=== PATIENT | male | born 1975 | race Caucasian/White ===

== ENCOUNTER 2025-08-31 12:12 | Inpatient (IN) ==
[2025-08-31 13:05] LABS: Hematocrit (blood only) 40.3 % (42.0-52.0); Hemoglobin 14.7 g/dL (14.0-18.0); Immature Granulocytes # (auto) 0.04 K/uL (0.01-0.20); Immature Granulocytes % (auto) 0.5 %; Mean Corpuscular Hemoglobin 32.0 pg (25.0-34.0); Mean Corpuscular Volume 87.6 fL (80.0-100.0); Platelet Count 254 K/uL (130-400); RDW Standard Deviation 40.6 fL (36.4-46.3); Red Blood Count 4.60 M/uL (4.70-6.10); White Blood Count 8.87 K/ul (4.8-10.8)
[2025-08-31 13:22] LABS: Alanine Aminotransferase 25.0 U/L (7-52); Albumin Globulin Ratio 2.1 (0.9-2); Albumin Level 4.4 gm/dl (3.4-5.0); Alkaline Phosphatase 46.0 U/L (34-104); Anion Gap 8.0 (3-11); Bilirubin,Total 0.6 mg/dl (0.2-1.0); Blood Urea Nitrogen 13.0 mg/dl (6-23); Calcium 9.2 mg/dl (8.6-10.3); Carbon Dioxide 28.0 mmol/L (21-32); Chloride 102.0 mmol/L (98-107); Creatinine Clr Calc Pharmacy 145.7 ml/min; Globulin 2.1 gm/dl (2.5-4.0); Glucose 107.0 mg/dl (70-99(Fasting)); Potassium 3.5 mmol/L (3.5-5.1); Sodium 138.0 mmol/L (136-145); Total Protein 6.5 gm/dl (6.0-8.3)
--- NOTE | 2025-08-31 13:36 | XRay Report ---
XR chest 1V portable HISTORY: 50 years-old Male Chest pain, nonspecific COMPARISON: Chest radiograph 12/23/2024 TECHNIQUE: AP view of the chest FINDINGS: Cardiomediastinal and hilar silhouettes are within normal limits. No pneumothorax, pleural effusion, airspace consolidation or pulmonary edema. Bones of the chest appear grossly intact. IMPRESSION: No acute process of the chest. ACT 112: Negative or not required by law. The above report was generated using voice recognition software. It may contain grammatical, syntax o r spelling errors. Electronically signed by: Iraj Chirinos M.D. 08/31/2025 1:34 PM
--- NOTE | 2025-08-31 13:53 | Emergency Department Note ---
History of Present Illness General Chief complaint: Cardiac Assessment Stated complaint: CHEST PAIN/ARM PAIN Time Seen by Provider: 08/31/25 12:43 History of Present Illness Maximum Pain Intensity: 6 Patient is a 50-year-old male with past medical history significant for hypertension, tobacco abuse, GERD, among other chronic medical problems who presents to the emergency department for evaluation of chest pain. He states the chest pain started yesterday. It comes and goes in waves. He describes it as a tightness in the left side of his neck, and that radiates to the anterior neck, then radiates into the left side of his chest, into his left arm and into his left back. He feels short of breath and anxious with this. He is on lisinopril for hypertension, but did not take it for the last couple of days because he was hunting and he forgot. He had an episode of pain around 1030 today. He was out hunting when the pain happened. He is daughter is a nurse at our facility, she instructed him to take his lisinopril, and his famotidine and omeprazole, which he did without relief. She also gave him a small dose of a family member's Ativan, also with minimal relief. He is seen in the exam room, in the midst of another episode of pain. He has never had any type of cardiac workup. There is a family history of early cardiac disease in his mother, in her 40s. Home Medications Medication Instructions Recorded Confirmed Type famotidine 40 mg tablet 40 mg PO HS #90 tabs 02/11/25 08/31/25 Rx lisinopril 20 mg tablet 20 mg PO DAILY #90 tabs 04/04/25 08/31/25 Rx omeprazole 40 mg capsule,delayed 40 mg PO DAILY 08/31/25 08/31/25 History release Allergies Allergy/AdvReac Type Severity Reaction Status Date / Time No Known Allergies Allergy Verified 08/31/25 14:50 Past Med/Surg History Problem List (Updated 08/31/25 @ 16:50 by Surya Decker) Elevated troponin (Acute) Precordial chest pain (Acute) NSTEMI (non-ST elevated myocardial infarction) Hypertension Vitamin D insufficiency Hyperlipidemia History of squamous cell carcinoma in situ (SCCIS) of skin (2019) Barretts esophagus Marijuana user daily use > not medical History of nicotine dependence Quit in 2006 GERD without esophagitis (Chronic) reason for up coming EGD Herniated intervertebral disc (Chronic) BPH (benign prostatic hyperplasia) (Chronic) Arthritis (Chronic) Medical History History of rectal bleeding History of herniated intervertebral disc 2 lower, 1 upper BPH (benign prostatic hyperplasia) Barretts esophagus Hyperlipidemia GERD without esophagitis Hx of squamous cell carcinoma History of COVID-19 Sep 27, 2022 > not hospitalized History of sepsis 2013 Surgical History Hx of squamous cell carcinoma excision S/P epidural steroid injection History of colonoscopy History of esophagogastroduodenoscopy (EGD) History of tooth extraction all teeth removed S/P appendectomy Family History Father Hypertension Diabetes Pancreatic cancer Mother , 70 Myocardial infarction Hypertension Coronary heart disease Stroke Aunt Family hx of colon cancer Grandfather (Paternal) Family hx of colon cancer Other No family history of adverse response to anesthesia Denies family history of Ovarian cancer Prostate cancer Breast cancer Colorectal cancer Social History Smoking Status: Never smoker Tobacco Type: Cigarettes Age Started Using Tobacco: 15; Age Quit Using Tobacco: 35; packs per day: 3; Second Hand Exposure: No; Do You Dip or Chew Tobacco: No; Hx Alcohol Use: No Hx Substance Use: Yes Last Used Substance: Days (ago) Last Used Substance Other:: marijuana daily (advised) Substance Use Type Other:: daily use > advised 3 day or longer hold Preferred Language: Khmer Communication Ability: Effective Visual Impairment: No Limitations Hearing Ability: Normal Certified Forklift Operator Required: No Beliefs That Will Affect Care: None marital status: Current Living Situation: Spouse Current Living Situation Comment: Lives with and 1 daughter current occupational status: employed current occupation: contractor Feels Safe at Home: Yes Childhood Exposure to Second-Hand Smoke: Yes Diet: regular caffeine: Yes (coffee) during the past year weight has: remained stable Dental Care, Regularly: No Physical Activity Frequency: Daily Physical Activity Frequency Comment: walking Seatbelt Use: sometimes Sunscreen Use: No Assistive Devices: Denture - Upper and Denture - Lower Review of Systems A total of 10 systems reviewed and were otherwise negative Physical Exam Vital Signs Vital Signs - 24 hr 08/31/25 12:15 08/31/25 12:24 08/31/25 12:27 Temperature 36.8 C Temperature Source Temporal Artery Scan Pulse Rate 79 65 Pulse Rate [Apical] Pulse Rhythm [Apical] Respiratory Rate 16 Respiratory Effort / Characteristics Non-Labored Respiratory Depth Normal Respiratory Pattern Regular Blood Pressure 186/120 H Blood Pressure [Left Arm] Blood Pressure Mean 142 Blood Pressure Mean [Left Arm] Blood Pressure Position [Left Arm] Pulse Oximetry 97 Oxygen Delivery Method Room Air Room Air Sepsis Recent Fever Within 48 Hours No Sepsis New/Unexplained Change in Mental Status N/A Sepsis Action Taken by Nursing No Action Required 08/31/25 12:27 08/31/25 13:35 08/31/25 14:00 Temperature Temperature Source Pulse Rate Pulse Rate [Apical] 61 70 75 Pulse Rhythm [Apical] Regular Respiratory Rate 16 17 18 Respiratory Effort / Characteristics Non-Labored Spontaneous Non-Labored Spontaneous Respiratory Depth Normal Normal Respiratory Pattern Regular Regular Blood Pressure Blood Pressure [Left Arm] 151/101 H 155/118 H 179/117 H Blood Pressure Mean Blood Pressure Mean [Left Arm] 117 130 137 Blood Pressure Position [Left Arm] Pulse Oximetry 96 98 95 Oxygen Delivery Method Room Air Room Air Sepsis Recent Fever Within 48 Hours Sepsis New/Unexplained Change in Mental Status Sepsis Action Taken by Nursing 08/31/25 14:05 08/31/25 14:10 08/31/25 14:20 Temperature Temperature Source Pulse Rate Pulse Rate [Apical] 72 74 90 Pulse Rhythm [Apical] Regular Respiratory Rate 14 16 Respiratory Effort / Characteristics Non-Labored Non-Labored Spontaneous Respiratory Depth Normal Normal Respiratory Pattern Regular Regular Blood Pressure Blood Pressure [Left Arm] 144/103 H 150/103 H 133/90 Blood Pressure Mean Blood Pressure Mean [Left Arm] 116 118 104 Blood Pressure Position [Left Arm] Semi-fowlers Pulse Oximetry 94 96 93 Oxygen Delivery Method Room Air Room Air Room Air Sepsis Recent Fever Within 48 Hours Sepsis New/Unexplained Change in Mental Status Sepsis Action Taken by Nursing 08/31/25 15:22 Temperature Temperature Source Pulse Rate Pulse Rate [Apical] 72 Pulse Rhythm [Apical] Respiratory Rate 18 Respiratory Effort / Characteristics Respiratory Depth Respiratory Pattern Blood Pressure Blood Pressure [Left Arm] 139/92 Blood Pressure Mean Blood Pressure Mean [Left Arm] 107 Blood Pressure Position [Left Arm] Pulse Oximetry 98 Oxygen Delivery Method Room Air Sepsis Recent Fever Within 48 Hours Sepsis New/Unexplained Change in Mental Status Sepsis Action Taken by Nursing CONSTITUTIONAL: Patient is comfortable appearing 50-year-old male and in moderate distress due to his acute chest pain on exam. EYES: Pupils equal, round, reactive to light and accommodation. EOMs intact without nystagmus. Sclera are anicteric. CARDIOVASCULAR: Regular rate and rhythm. Peripheral pulses easily palpable. RESPIRATORY: Breath sounds equal and clear to auscultation ABDOMEN: Bowel sounds are present. The abdomen is soft, nontender, nondistended. No guarding or rebound. INTEGUMENTARY: No lesions or rash, normal skin turgor. LYMPH: No lymphadenopathy. Course Course The patient was seen and assessed as above. External medical records are reviewed. He presents to the emergency department for evaluation of episodes of acute chest pain over the last 1 just 2 days. He has been missed several days of his lisinopril. He is acutely uncomfortable and hypertensive on arrival in the ED. IV lock was initiated. Laboratory studies were collected. EKG and chest x-ray were obtained. Diagnostics, as interpreted by me: Laboratory studies: No leukocytosis or anemia, no electrolyte imbalance, no CHRISS. Transaminases are normal. Initial troponin normal sinus rhythm, 172. Repeat troponin over 450. ECG: Sinus arrhythmia 72 bpm. No acute ischemic changes, no STEMI. Cardiac monitoring: An order was placed for continuous cardiac monitoring. The monitor shows a NSR at a rate of 70 Per my interpretation. Imaging studies: chest x-ray, no pneumothorax, no infiltrate. The patient was reassessed frequently. He was given aspirin p.o. and sublingual nitro x 3 with good improvement in his pain, and blood pressure. He remained hemodynamically stable in the ED pending laboratory study results. Patient reviewed with attending physician, Dr. Guadalupe, regarding elevated troponin/NSTEMI. Patient reviewed the ED family service caseworker, and consultation placed with the [facility]. Patient discussed with Dr. Quan. Chronic conditions affecting care: Hypertension, tobacco abuse Differential diagnosis: acute myocardial infarction, acute coronary syndrome, myocarditis, pericarditis, pulmonary embolism, pneumonia, pneumothorax, COPD/asthma exacerbation, musculoskeletal, anxiety, costochondritis, hypertensive emergency/urgency, among others. Administered Medications Nitroglycerin (Nitroglycerin Sl 0.4 Mg/Tab Tab) 0.4 mg SL Q5M PRN PRN Reason: Chest Pain Stop: 09/30/25 13:44 Last Admin: 08/31/25 14:16 Dose: 0.4 mg Documented By: Admin: 08/31/25 14:08 Dose: 0.4 mg Documented By: Admin: 08/31/25 14:01 Dose: 0.4 mg Documented By: SHAHNAZ Discontinued Medications Aspirin (Aspirin 81 Mg Chew) 324 mg PO NOW STA Stop: 08/31/25 13:46 Last Admin: 08/31/25 13:59 Dose: 324 mg Documented By: SHAHNAZ Lidocaine (Lidocaine 5% 1 Patch) 1 patch TD NOW STA Stop: 08/31/25 15:11 Last Admin: 08/31/25 15:20 Dose: 1 patch Documented By: vilma Medical Decision Making Differential Diagnosis See ED course. Medical Records Attestation: I reviewed the patient's medical records. Home Medications Current Medication List: was personally reviewed by me Laboratory Data Attestation: I reviewed the patient's lab results. 08/31/25 12:25 08/31/25 12: Lab Results 08/31/25 08/31/25 Range/Units 12: 14:47 WBC 8.87 (4.8-10.8) K/ul RBC 4.60 L (4.70-6.10) M/uL Hgb 14.7 (14.0-18.0) g/dL Hct 40.3 L (42.0-52.0) % MCV 87.6 (80.0-100.0) fL MCH 32.0 (25.0-34.0) pg MCHC 36.5 H (32.0-36.0) g/dL RDW Std Deviation 40.6 (36.4-46.3) fL RDW Coeff of Hasmukh 12.7 (11.5-14.5) % Plt Count 254 (130-400) K/uL MPV 9.3 L (9.4-12.4) fL Immature Gran % (Auto) 0.5 % Neut % (Auto) 76.5 % Lymph % (Auto) 15.1 % Kings % (Auto) 7.4 % Eos % (Auto) 0.3 % Baso % (Auto) 0.2 % Neut # (Auto) 6.78 H (1.40-6.50) K/uL Lymph # (Auto) 1.34 (1.20-3.40) K/uL Kings # (Auto) 0.66 H (0.11-0.59) K/uL Eos # (Auto) 0.03 (0.00-0.50) K/uL Baso # (Auto) 0.02 (0.00-0.20) K/uL Immature Gran # (Auto) 0.04 (0.01-0.20) K/uL Sodium 138 (136-145) mmol/L Potassium 3.5 (3.5-5.1) mmol/L Chloride 102 (98-107) mmol/L Carbon Dioxide 28 (21-32) mmol/L Anion Gap 8 (3-11) BUN 13 (6-23) mg/dl Creatinine 0.74 (0.6-1.4) mg/dl Est Cr Clr Drug Dosing 145.7 ml/min eGFR 111.07 BUN/Creatinine Ratio 17.6 (10-20) Glucose 107 H (70-99(Fasting)) mg/dl Calcium 9.2 (8.6-10.3) mg/dl Total Bilirubin 0.6 (0.2-1.0) mg/dl AST 18 (13-39) U/L ALT 25 (7-52) U/L Alkaline Phosphatase 46 (34-104) U/L Troponin I High Sens 172.8 H* 456.5 H* D (0-20) pg/ml Total Protein 6.5 (6.0-8.3) gm/dl Albumin 4.4 (3.4-5.0) gm/dl Globulin 2.1 L (2.5-4.0) gm/dl Albumin/Globulin Ratio 2.1 H (0.9-2) Imaging Data Attestation: I personally reviewed and interpreted this imaging study as follows: Radiologist's Impression: Chest X-Ray 08/31/25 12:48 XR chest 1V portable HISTORY: 50 years-old Male Chest pain, nonspecific COMPARISON: Chest radiograph 12/23/2024 TECHNIQUE: AP view of the chest FINDINGS: Cardiomediastinal and hilar silhouettes are within normal limits. No pneumothorax, pleural effusion, airspace consolidation or pulmonary edema. Bones of the chest appear grossly intact. IMPRESSION: No acute process of the chest. ACT 112: Negative or not required by law. The above report was generated using voice recognition software. It may contain grammatical, syntax or spelling errors. Electronically signed by: Iraj Chirinos M.D. 08/31/2025 1:34 PM MDM Narrative See ED course. Impression & Plan Precordial chest pain, Elevated troponin Discharge Plan Visit Data Chief Complaint: Cardiac Assessment Stated Complaint: CHEST PAIN/ARM PAIN ED Provider: Willie Guadalupe ED Midlevel Provider: Surya Decker Discharge Problem: Precordial chest pain, Elevated troponin Condition: Fair Discharge Instructions Interventions: ED Discharge Assessment Last Done: 08/31/25 15:55
[2025-08-31] MEDS: ASPIRIN 81 MG CHEW PO STA (13:59)
[2025-08-31] MEDS: NITROGLYCERIN SL 0.4 MG/TAB TAB SL PRN (14:01)
[2025-08-31] MEDS: LIDOCAINE 5% 1 PATCH TD STA (15:20)
--- NOTE | 2025-08-31 16:41 | History & Physical Report ---
Date of Service August 31, 2025 Assessment & Plan (1) NSTEMI (non-ST elevated myocardial infarction): Plan: -tele -tropoin x3 -asa, metoprolol,statin -heparin drip -morphine prn -echo -cardiology consulted (2) Hypertension: Plan: -lisinopril (3) GERD without esophagitis: Plan: -omeprazole History of Present Illness Chief Complaint: Chest pain Primary Care Provider: TERI Huang Pt is a 50 y/o male with pmh of HTN, GERD who presents with left sided chest pain that radiates to his left shoulder and jaw that started yesterday and comes and goes in waves. In the ER his EKG showed no ST-T changes, his troponin returned > 178. Pt complaining of pain in his left shoulder. He was given asa, lipitor, metoprolol, and started on a heparin drip for the treatment of possible NTEMI. Pt had echo and cardiology consult ordered. Allergies Allergy/AdvReac Type Severity Reaction Status Date / Time No Known Allergies Allergy Verified 08/31/25 14:50 Home Medications Medication Instructions Recorded Confirmed Type famotidine 40 mg tablet 40 mg PO HS #90 tabs 02/11/25 08/31/25 Rx lisinopril 20 mg tablet 20 mg PO DAILY #90 tabs 04/04/25 08/31/25 Rx omeprazole 40 mg capsule,delayed 40 mg PO DAILY 08/31/25 08/31/25 History release Past Med/Surg History Problem List (Updated 08/31/25 @ 16:40 by Carlos Quan MD) NSTEMI (non-ST elevated myocardial infarction) Hypertension Vitamin D insufficiency Hyperlipidemia History of squamous cell carcinoma in situ (SCCIS) of skin (2019) Barretts esophagus Marijuana user daily use > not medical History of nicotine dependence Quit in 2006 GERD without esophagitis (Chronic) reason for up coming EGD Herniated intervertebral disc (Chronic) BPH (benign prostatic hyperplasia) (Chronic) Arthritis (Chronic) Medical History History of rectal bleeding History of herniated intervertebral disc BPH (benign prostatic hyperplasia) Barretts esophagus Hyperlipidemia GERD without esophagitis Hx of squamous cell carcinoma History of COVID-19 History of sepsis Surgical History Hx of squamous cell carcinoma excision S/P epidural steroid injection History of colonoscopy History of esophagogastroduodenoscopy (EGD) History of tooth extraction S/P appendectomy Family History Father Hypertension Diabetes Pancreatic cancer Mother Myocardial infarction Hypertension Coronary heart disease Stroke Aunt Family hx of colon cancer Grandfather (Paternal) Family hx of colon cancer Other No family history of adverse response to anesthesia Denies family history of Ovarian cancer Prostate cancer Breast cancer Colorectal cancer Social History Smoking Status: Never smoker Tobacco Type: Cigarettes Age Started Using Tobacco: 15; Age Quit Using Tobacco: 35; packs per day: 3; Second Hand Exposure: No; Do You Dip or Chew Tobacco: No; Hx Alcohol Use: No Hx Substance Use: Yes Last Used Substance: Days (ago) Last Used Substance Other:: marijuana daily (advised) Substance Use Type Other:: daily use > advised 3 day or longer hold Preferred Language: Peruvian Communication Ability: Effective Visual Impairment: No Limitations Hearing Ability: Normal Traveling Engineer Required: No Beliefs That Will Affect Care: None marital status: Current Living Situation: Spouse Current Living Situation Comment: Lives with and 1 daughter current occupational status: employed current occupation: contractor Feels Safe at Home: Yes Childhood Exposure to Second-Hand Smoke: Yes Diet: regular caffeine: Yes (coffee) during the past year weight has: remained stable Dental Care, Regularly: No Physical Activity Frequency: Daily Physical Activity Frequency Comment: walking Seatbelt Use: sometimes Sunscreen Use: No Assistive Devices: Denture - Upper and Denture - Lower Review of Systems Review of Systems: CONST: Negative for fever, body aches and chills. HENT: Negative for neck pain/stiffness, headache, congestion, sore throat, swelling. EYES: Negative for discharge/pain or vision changes. RESP: Negative for cough/hemoptysis and shortness of breath. CV: +chest pain, difficulty breathing, palpitations. ABD: Negative pain, nausea, vomiting. : Negative increase frequency, dysuria, blood in urine or stool. MUSC: Negative for muscle aches, edema. SKIN: Negative rash, lesions/sores. NEURO: Negative headache, dizziness, weakness. Physical Exam Physical Exam: GENERAL APPEARANCE NAD, activity normal for age, well developed/ well nourished, no cyanosis, pallor, or diaphoresis. EYES lids/conjunctiva normal. EARS/NOSE/THROAT Mucous membranes moist, nares normal, lips/teeth normal uvula midline without oral pharyngeal erythema, exudate or swelling TMs normal bilaterally. No lymphangitis/lymphedema. HEAD/NECK normocephalic atraumatic, no facial trauma, neck is supple. RESPIRATORY respiratory effort normal, speaks in full sentences, no tripod position, no accessory muscle use. Lungs clear to auscultation without rhonchi, wheezes, rales CARDIAC Regular rate and rhythm, no edema. ABDOMINAL Soft, ND/NT. No evidence of fluid wave. No pulsatile masses on exam, rebound tenderness, Carlos sign or pain over Mcburney's point. MUSCLES/EXTREMITIES No abnormal range of motion, no swelling. SKIN Warm, pink and dry. No rashes, dermatoses, petechiae or lesions. NEUROLOGICAL Speech is clear and appropriate. Normal level of consciousness. Gait and coordination are normal. 5/5 strength in all extremities. PSYCH Normal mood and affect. Judgement/competence is appropriate Results & Data Results & Data Vital Signs (Past 12 Hours) Vital Signs Temp Pulse Pulse Resp BP BP Pulse Ox 08/31/25 15:22 72 18 139/92 98 08/31/25 14:20 90 16 133/90 93 08/31/25 14:10 74 14 150/103 H 96 08/31/25 14:05 72 144/103 H 94 08/31/25 14:00 75 18 179/117 H 95 08/31/25 13:35 70 17 155/118 H 98 08/31/25 12:27 61 16 151/101 H 96 08/31/25 12:27 08/31/25 12:24 65 08/31/25 12:15 36.8 C 79 16 186/120 H 97 O2 Del Method 08/31/25 15:22 Room Air 08/31/25 14:20 Room Air 08/31/25 14:10 Room Air 08/31/25 14:05 Room Air 08/31/25 14:00 Room Air 08/31/25 13:35 Room Air 08/31/25 12:27 08/31/25 12:27 Room Air 08/31/25 12:24 08/31/25 12:15 Room Air PG Care Time/CCT Total # of Minutes Spent Total Time Spent with Patient: Total time spent is greater than 50% in coordination of care (as documented) at patient's floor/unit and/or counseling patient: Coding Level of Care Code 17025 INT INP/OBS CARE 2/55MIN Diagnoses NSTEMI (non-ST elevated myocardial infarction) I21.4 Hypertension I10 GERD without esophagitis K21.9
[2025-08-31] MEDS: ATORVASTATIN 40 MG TAB PO SCH (17:19)
[2025-08-31] MEDS: MoRPHine SULFATE 4 MG/ML 1 ML CARP\\VIAL IV PRN (17:24)
[2025-08-31] MEDS: HEPARIN 25000 UNIT/500 ML D5W 25,000 UNITS/500 ML BAG IV SCH (17:58)
[2025-08-31] MEDS: HEPARIN SOD (PORCINE) 1000 UNIT/ML IV ONE (17:58)
[2025-08-31] MEDS: Heparin IV Adult Wt-Based Standard w/ INITIAL Bolus Protocol IV STA (17:59)
[2025-08-31 18:01] LABS: Hematocrit (blood only) 42.7 % (42.0-52.0); Hemoglobin 15.3 g/dL (14.0-18.0); Immature Granulocytes # (auto) 0.03 K/uL (0.01-0.20); Immature Granulocytes % (auto) 0.3 %; Mean Corpuscular Hemoglobin 31.4 pg (25.0-34.0); Mean Corpuscular Volume 87.7 fL (80.0-100.0); Platelet Count 283 K/uL (130-400); RDW Standard Deviation 40.0 fL (36.4-46.3); Red Blood Count 4.87 M/uL (4.70-6.10); White Blood Count 10.03 K/ul (4.8-10.8)
[2025-08-31 18:28] LABS: INR 1.0 (0.9-1.1); Partial Thromboplastin Time 26 Seconds (21-31); Prothrombin Time 11.0 Seconds (9.0-12.0)
--- NOTE | 2025-08-31 18:37 | Communication Note ---
Date of Service: August 31, 2025 Notified by staff that patient had not had complete resolution of his chest/shoulder pain, upgoing Trop. Seen at bedside. On discussion he endorses a history of chest pain radiating to shoulder brought out by exertion in the last 5 months, but which does seem to be worse in the last month and has occurred in the last month with minimal exertion and has taken longer to improve. His worst episode was prior to admission when he was walking more than typical while in the [place]/hunting and had a very strong pressure-like feeling in his chest which radiated to his shoulder. Family history of heart disease in his mother in her 40s. He has a history of hypertension No tobacco/to use Troponin is upgoing. Last EKG reviewed, sinus bradycardia with no territorial ST segment changes Repeat EKG ordered to ensure stability. Due to improved but still some residual left shoulder pain did move up evening dose of metoprolol and added half inch of Nitropaste. Initially patient was planning on a stress test however has developed upgoing troponins with worsening anginal story. Did review briefly with cardiology to make aware and may be a catheterization candidate. Symptoms overall are improving and he does not have acute ST changes so we will continue heparinization for now. If he has any acute episodes of worsened chest pain overnight please obtain a stat EKG and notify cardiology.
[2025-08-31] MEDS: NITROGLYCERIN 2% OINTMENT 30GM TUBE EXT SCH (19:20)
[2025-08-31] MEDS: METOPROLOL TARTRATE 25 MG TAB PO ONE (19:20)
[2025-08-31] MEDS: FAMOTIDINE 40 MG TABLET PO SCH (19:21)
[2025-08-31] MEDS: ACETAMINOPHEN 325 MG TAB PO PRN (20:18)
[2025-08-31] MEDS ORDERED: METOPROLOL TARTRATE 25 MG TAB PO SCH (21:00)
[2025-08-31] MEDS: REMOVE LIDODERM PATCH SCH (23:20)
[2025-09-01 00:32] LABS: Hematocrit (blood only) 39.3 % (42.0-52.0); Hemoglobin 14.0 g/dL (14.0-18.0); Immature Granulocytes # (auto) 0.03 K/uL (0.01-0.20); Immature Granulocytes % (auto) 0.3 %; Mean Corpuscular Hemoglobin 31.3 pg (25.0-34.0); Mean Corpuscular Volume 87.9 fL (80.0-100.0); Platelet Count 248 K/uL (130-400); RDW Standard Deviation 40.7 fL (36.4-46.3); Red Blood Count 4.47 M/uL (4.70-6.10); White Blood Count 10.70 K/ul (4.8-10.8)
[2025-09-01 00:48] LABS: Anion Gap 8.0 (3-11); Blood Urea Nitrogen 13.0 mg/dl (6-23); Calcium 8.5 mg/dl (8.6-10.3); Carbon Dioxide 26.0 mmol/L (21-32); Chloride 103.0 mmol/L (98-107); Creatinine Clr Calc Pharmacy 145.3 ml/min; Glucose 116.0 mg/dl (70-99(Fasting)); Magnesium 1.8 mg/dl (1.7-2.4); Potassium 3.5 mmol/L (3.5-5.1); Sodium 137.0 mmol/L (136-145)
[2025-09-01 00:54] LABS: ANTI-Xa, UFH(UnfractionatedHep 0.68 IU/ml (0.3-0.7)
[2025-09-01] MEDS: CLOPIDOGREL BISULFATE 300 MG TAB PO STA (01:22)
[2025-09-01 02:38] LABS: Hematocrit (blood only) 38.2 % (42.0-52.0); Hemoglobin 13.6 g/dL (14.0-18.0); Mean Corpuscular Hemoglobin 31.4 pg (25.0-34.0); Mean Corpuscular Volume 88.2 fL (80.0-100.0); Platelet Count 250 K/uL (130-400); RDW Standard Deviation 41.0 fL (36.4-46.3); Red Blood Count 4.33 M/uL (4.70-6.10); White Blood Count 9.57 K/ul (4.8-10.8)
[2025-09-01 02:52] LABS: Anion Gap 9.0 (3-11); Blood Urea Nitrogen 14.0 mg/dl (6-23); Calcium 8.5 mg/dl (8.6-10.3); Carbon Dioxide 25.0 mmol/L (21-32); Chloride 104.0 mmol/L (98-107); Creatinine Clr Calc Pharmacy 143.4 ml/min; Glucose 114.0 mg/dl (70-99(Fasting)); Potassium 3.2 mmol/L (3.5-5.1); Sodium 138.0 mmol/L (136-145)
[2025-09-01 03:00] LABS: ANTI-Xa, UFH(UnfractionatedHep 0.58 IU/ml (0.3-0.7)
--- NOTE | 2025-09-01 05:13 | Communication Note ---
Date of Service: September 01, 2025 S/O: Follow-up EKG ordered after prior EKG's had not shown any changes diagnostic of a STEMI. In the meantime the patient had been started on a heparin drip, received nitroglycerin, SL, 0.4 mg x 3; aspirin, 324 mg, PO; atorvastatin, 40 mg, PO; metoprolol tartrate, 25 mg, PO; nitroglycerin, ext paste, 1/2 inch. Follow up EKG's noted some T wave changes (particularly in lead II) but nothing that strictly fit the diagnostic criteria of a STEMI (ST elevation in 2 contiguous leads of > 1 mm). Patient also noted that he was not having any pain at this time. Repeat troponin, BMP, CBC, magnesium were ordered at this time. A/P: Due to uncertainty about whether the T wave changes were sufficient to indicate a change in management, the on-call safemaker, Dr. Brooke, was contacted. His assessment at the time was that neither of the repeat EKG's were field marketing representative of a STEMI; also he noted that, per the pt, the CP/arm pain/shoulder pain had resolved. He recommended a loading dose of Plavix, 600 mg, PO and this order was placed. Labs that resulted some time later showed a K, 3.2 and a Mg, 1.8; 40 mEq of KCl, IV and 2 g MgSO4, IV were ordered. HS Troponin had increased from 457 --> 5474 --> 5999. A Cardiology consult, routine, had been placed the day prior.
[2025-09-01] MEDS: MAGNESIUM SULFATE / D5W 1 GM/100 ML BAG IV SCH (05:45)
[2025-09-01] MEDS: POTASSIUM CHLORIDE / WTR 10 MEQ/100 ML PLCT IV SCH (05:46)
[2025-09-01] MEDS: ASPIRIN 81 MG ECTAB PO SCH (08:42)
[2025-09-01] MEDS: METOPROLOL TARTRATE 25 MG TAB PO SCH (08:42)
--- NOTE | 2025-09-01 09:22 | Hospitalist Progress Note ---
Date of Service September 01, 2025 Assessment & Plan (1) NSTEMI (non-ST elevated myocardial infarction): Plan: -tele -tropoin increased >5999 -asa, metoprolol,statin -heparin drip -morphine prn -echo -cardiology consulted for cardiac cath (2) Hypertension: Plan: -lisinopril (3) GERD without esophagitis: Plan: -omeprazole Admission and Anticipated Discharge Date Admission Date: August 31, 2025 Subjective Pt had complaints of shoulder pain last night. EKGs reviewed, no ST elevations. Pain has since resolved. Review of Systems Review of Systems: CONST: Negative for fever, body aches and chills. HENT: Negative for neck pain/stiffness, headache, congestion, sore throat, swelling. EYES: Negative for discharge/pain or vision changes. RESP: Negative for cough/hemoptysis and shortness of breath. CV: +chest pain, difficulty breathing, palpitations. ABD: Negative pain, nausea, vomiting. : Negative increase frequency, dysuria, blood in urine or stool. MUSC: Negative for muscle aches, edema. SKIN: Negative rash, lesions/sores. NEURO: Negative headache, dizziness, weakness. Physical Exam Physical Exam: GENERAL APPEARANCE NAD, activity normal for age, well developed/ well nourished, no cyanosis, pallor, or diaphoresis. EYES lids/conjunctiva normal. EARS/NOSE/THROAT Mucous membranes moist, nares normal, lips/teeth normal uvula midline without oral pharyngeal erythema, exudate or swelling TMs normal bilaterally. No lymphangitis/lymphedema. HEAD/NECK normocephalic atraumatic, no facial trauma, neck is supple. RESPIRATORY respiratory effort normal, speaks in full sentences, no tripod position, no accessory muscle use. Lungs clear to auscultation without rhonchi, wheezes, rales CARDIAC Regular rate and rhythm, no edema. ABDOMINAL Soft, ND/NT. No evidence of fluid wave. No pulsatile masses on exam, rebound tenderness, Carlos sign or pain over Mcburney's point. MUSCLES/EXTREMITIES No abnormal range of motion, no swelling. SKIN Warm, pink and dry. No rashes, dermatoses, petechiae or lesions. NEUROLOGICAL Speech is clear and appropriate. Normal level of consciousness. Gait and coordination are normal. 5/5 strength in all extremities. PSYCH Normal mood and affect. Judgement/competence is appropriate Results & Data Results & Data Vital Signs (Past 12 Hours) Vital Signs Temp Pulse Pulse Pulse Resp BP Pulse Ox 09/01/25 07:53 36.3 C L 71 18 117/70 97 09/01/25 07:42 65 09/01/25 03:34 36.7 C 78 20 110/67 93 09/01/25 03:33 57 L 08/31/25 23:38 36.7 C 63 20 111/70 95 O2 Del Method 09/01/25 07:53 Room Air 09/01/25 07:42 09/01/25 03:34 Room Air 09/01/25 03:33 08/31/25 23:38 Room Air PG Care Time/CCT Total # of Minutes Spent Total Time Spent with Patient: Total time spent is greater than 50% in coordination of care (as documented) at patient's floor/unit and/or counseling patient: Coding Level of Care Code 34166 SUB INP/OBS CARE 2/35MIN Diagnoses NSTEMI (non-ST elevated myocardial infarction) I21.4 Hypertension I10 GERD without esophagitis K21.9
--- NOTE | 2025-09-01 12:19 | Cardiology Consultation ---
Date of Consultation September 01, 2025 Assessment & Plan (1) NSTEMI (non-ST elevated myocardial infarction): (2) Angina at rest: (3) Coronary artery calcification seen on CAT scan: (4) Hypertension: (5) Hyperlipidemia: (6) Family history of coronary artery disease: Plan Will plan on doing the left heart catheterization tomorrow with Dr. Brooke. He did receive a single dose of Plavix 75 mg today. I would hold that in the event that he were to have surgical disease loading of the Plavix may delay surgical intervention. Obviously if he does have stentable disease he will get loaded in the Purchasing Supervisor. Will continue aspirin beta-sukhjinder nitrates as well as statin for now. Will plan on doing elective catheterization tomorrow morning. In the event that he continues to have recurrent symptoms we will call the Purchasing Supervisor and to do him sooner rather than later. 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 In the course of working up other vascular disease given his prior significant history of smoking he should have his carotids as well as an abdominal aortic ultrasound done however we can do this as an outpatient. Would also recheck his troponin tomorrow since his values have not yet peaked. His last troponin this morning was over 7000. Thank you for allowing me to participate in his care. I will follow-up with him tomorrow after his cath with Dr. Brooke. History of Present Illness Attending Physician: Carlos Quan MD History of Present Illness Fartun Hamilton is a 50-year-old man who has had atypical symptoms which started he thinks back in November. He was admitted to the hospital back in November ruled out for SD underwent a CTA of the chest to rule out pulmonary embolus but no further cardiac workup was done. He has had a pressure sensation in his neck which he describes as a tightness he thought felt like asthma. Most recently he has been getting the symptoms on and off and yesterday the symptom occurred while he was out hunting with his daughter. He did note some chest discomfort as well as some symptoms into his left arm. I actually looked at his echo yesterday no gross wall motion abnormalities were identified on the echo. His valves were otherwise structurally normal. His initial cardiac enzymes were Allergies Allergy/AdvReac Type Severity Reaction Status Date / Time No Known Allergies Allergy Verified 08/31/25 14:50 Home Medications Medication Instructions Recorded Confirmed Type famotidine 40 mg tablet 40 mg PO HS #90 tabs 02/11/25 08/31/25 Rx lisinopril 20 mg tablet 20 mg PO DAILY #90 tabs 04/04/25 08/31/25 Rx omeprazole 40 mg capsule,delayed 40 mg PO DAILY 08/31/25 08/31/25 History release Patient History Medical History History of rectal bleeding History of herniated intervertebral disc 2 lower, 1 upper BPH (benign prostatic hyperplasia) Barretts esophagus Hyperlipidemia GERD without esophagitis Hx of squamous cell carcinoma History of COVID-19 Sep 27, 2022 > not hospitalized History of sepsis 2012 Surgical History Hx of squamous cell carcinoma excision S/P epidural steroid injection History of colonoscopy History of esophagogastroduodenoscopy (EGD) History of tooth extraction all teeth removed S/P appendectomy Family History Father Hypertension Diabetes Pancreatic cancer Mother , 70 Myocardial infarction Hypertension Coronary heart disease Stroke Aunt Family hx of colon cancer Grandfather (Paternal) Family hx of colon cancer Other No family history of adverse response to anesthesia Denies family history of Ovarian cancer Prostate cancer Breast cancer Colorectal cancer Social History Smoking Status: Never smoker Tobacco Type: Cigarettes Age Started Using Tobacco: 15; Age Quit Using Tobacco: 35; packs per day: 3; Second Hand Exposure: Yes; Do You Dip or Chew Tobacco: No; Hx Alcohol Use: No Hx Substance Use: Yes Last Used Substance: Unknown Last Used Substance Other:: marijuana daily (advised) Substance Use Type Other:: daily use > advised 3 day or longer hold Preferred Language: Moldovan Communication Ability: Effective Visual Impairment: No Limitations Hearing Ability: Normal Production Support Analyst Required: No Beliefs That Will Affect Care: None marital status: Current Living Situation: Spouse Current Living Situation Comment: Lives with and 1 daughter current occupational status: employed current occupation: contractor Feels Safe at Home: Yes Childhood Exposure to Second-Hand Smoke: Yes Diet: regular caffeine: Yes (coffee) during the past year weight has: remained stable Dental Care, Regularly: No Physical Activity Frequency: Daily Physical Activity Frequency Comment: walking Seatbelt Use: sometimes Sunscreen Use: No Assistive Devices: None Review of Systems Review of Systems: All systems reviewed & are unremarkable except as noted in HPI & below Physical Exam Physical Exam: Awake alert oriented in no distress Respiratory: Clear to auscultation bilaterally there are no rales Cardiovascular: Heart is regular no murmurs are appreciated Results & Data Vital Signs (Past 12 Hours) Vital Signs Temp Pulse Pulse Pulse Resp BP Pulse Ox 09/01/25 11:28 36.3 C L 79 18 131/84 96 09/01/25 07:53 36.3 C L 71 18 117/70 97 09/01/25 07:42 65 09/01/25 03:34 36.7 C 78 20 110/67 93 09/01/25 03:33 57 L O2 Del Method 09/01/25 11:28 Room Air 09/01/25 07:53 Room Air 09/01/25 07:42 09/01/25 03:34 Room Air 09/01/25 03:33 Laboratory Results Abnormal lab results 08/31/25 08/31/25 08/31/25 Range/Units : 14:47 17:52 RBC 4.60 L (4.70-6.10) M/uL Hgb (14.0-18.0) g/dL Hct 40.3 L (42.0-52.0) % MCHC 36.5 H (32.0-36.0) g/dL MPV 9.3 L 9.0 L (9.4-12.4) fL Neut # (Auto) 6.78 H 7.07 H (1.40-6.50) K/uL [place] # (Auto) 0.66 H 0.71 H (0.11-0.59) K/uL Potassium (3.5-5.1) mmol/L Glucose 107 H (70-99(Fasting)) mg/dl Calcium (8.6-10.3) mg/dl Troponin I High Sens 172.8 H* 456.5 H* D (0-20) pg/ml Globulin 2.1 L (2.5-4.0) gm/dl Albumin/Globulin Ratio 2.1 H (0.9-2) 09/01/25 09/01/25 09/01/25 Range/Units 00:15 02:17 08:42 RBC 4.47 L 4.33 L (4.70-6.10) M/uL Hgb 13.6 L (14.0-18.0) g/dL Hct 39.3 L 38.2 L (42.0-52.0) % MCHC (32.0-36.0) g/dL MPV 9.3 L 9.2 L (9.4-12.4) fL Neut # (Auto) 6.75 H (1.40-6.50) K/uL [place] # (Auto) 0.99 H (0.11-0.59) K/uL Potassium 3.2 L (3.5-5.1) mmol/L Glucose 116 H 114 H (70-99(Fasting)) mg/dl Calcium 8.5 L 8.5 L (8.6-10.3) mg/dl Troponin I High Sens 5473.9 H* D 5998.5 H* 7709.4 H* D (0-20) pg/ml Globulin (2.5-4.0) gm/dl Albumin/Globulin Ratio (0.9-2) Medications Administered Current Inpatient Medications Acetaminophen (Acetaminophen 325 Mg Tab) 650 mg PO Q4H PRN PRN Reason: pain/fever Stop: 09/30/25 15:09 Last Admin: 09/01/25 12:15 Dose: 650 mg Aspirin (Aspirin 81 Mg Ectab) 81 mg PO DAILY [facility] Stop: 10/01/25 08:59 Last Admin: 09/01/25 08:42 Dose: 81 mg Atorvastatin Calcium (Atorvastatin 40 Mg Tab) [facility] [place] Stop: 09/30/25 15:14 Last Admin: 09/01/25 08:42 Dose: 40 mg Clopidogrel Bisulfate (Clopidogrel Bisulfate 75 Mg Tab) 75 mg PO [facility] Stop: 10/02/25 08:59 Famotidine (Famotidine 40 Mg Tablet) 40 mg PO HS [facility] Stop: 09/30/25 20:59 Last Admin: 08/31/25 19:21 Dose: 40 mg Heparin Sodium/Dextrose (Heparin 30280 Unit/500 Ml D5w) 25,000 units in 500 mls @ 31 mls/hr IV .Q16H8M [facility]; Protocol Stop: 09/30/25 15:44 Last Admin: 09/01/25 08:42 Dose: 1,550 units/hr, 31 mls/hr Lisinopril (Lisinopril 20 Mg Tab) 20 mg PO DAILY [facility] Stop: 10/01/25 08:59 Last Admin: 09/01/25 08:42 Dose: 20 mg Metoprolol Tartrate (Metoprolol Tartrate 25 Mg Tab) 25 mg PO BID [facility] Stop: 10/01/25 08:59 Last Admin: 09/01/25 08:42 Dose: 25 mg Miscellaneous (Remove Lidoderm Patch) 1 each N/A DAILY@2100 [facility] Stop: 09/30/25 20:59 Last Admin: 08/31/25 23:20 Dose: Not Given Morphine Sulfate (Morphine Sulfate 4 Mg/Ml 1 Ml Carp\Vial) 4 mg IV Q4H PRN PRN Reason: Pain Stop: 09/14/25 16:49 Last Admin: 08/31/25 22:25 Dose: 4 mg Nitroglycerin (Nitroglycerin Sl 0.4 Mg/Tab Tab) 0.4 mg SL Q5M PRN PRN Reason: Chest Pain Stop: 09/30/25 13:44 Last Admin: 08/31/25 14:16 Dose: 0.4 mg Nitroglycerin (Nitroglycerin 2% Ointment 30gm Tube) 0.5 inch EXT Q6H [facility] Stop: 09/30/25 18:44 Last Admin: 09/01/25 05:45 Dose: 0.5 inch Pantoprazole Sodium (Pantoprazole 40 Mg Tab) 40 mg PO DAILY [facility] Stop: 10/01/25 08:59 Last Admin: 09/01/25 08:42 Dose: 40 mg ECG Additional Comments: Normal sinus rhythm there are no acute ST-T wave changes noted
[2025-09-01] MEDS: ONDANSETRON INJ 2 MG/ML 2 ML VIAL IV PRN (13:34)
--- NOTE | 2025-09-02 01:15 | Electrocardiogram Report ---
Test Reason : Blood Pressure : */* mmHG Vent. Rate : 72 BPM Atrial Rate : 72 BPM P-R Int : 162 ms QRS Dur : 118 ms QT Int : 396 ms P-R-T Axes : 62 36 62 degrees QTcB Int : 433 ms Normal sinus rhythm with sinus arrhythmia Incomplete right bundle branch block Borderline ECG When compared with ECG of 23-Dec-2024 22:24, No significant change was found Confirmed by Anisa Sparks (Alyx) on 09/02/2025 1:15:17 AM Referred By: REFERRED SELF Confirmed By: Anisa Sparks
--- NOTE | 2025-09-02 01:37 | Electrocardiogram Report ---
Test Reason : Blood Pressure : */* mmHG Vent. Rate : 59 BPM Atrial Rate : 59 BPM P-R Int : 168 ms QRS Dur : 120 ms QT Int : 454 ms P-R-T Axes : 82 52 62 degrees QTcB Int : 449 ms Sinus bradycardia Non-specific intra-ventricular conduction delay Borderline ECG When compared with ECG of 31-Aug-2025 16:47, (unconfirmed) QRS duration has increased ST elevation has replaced ST depression in Inferior leads Confirmed by Anisa Sparks (Alyx) on 09/02/2025 1:37:35 AM Referred By: REFERRED SELF Confirmed By: Anisa Sparks
[2025-09-02 06:51] LABS: Hematocrit (blood only) 40.7 % (42.0-52.0); Hemoglobin 14.7 g/dL (14.0-18.0); Mean Corpuscular Hemoglobin 32.1 pg (25.0-34.0); Mean Corpuscular Volume 88.9 fL (80.0-100.0); Platelet Count 262 K/uL (130-400); RDW Standard Deviation 41.2 fL (36.4-46.3); Red Blood Count 4.58 M/uL (4.70-6.10); White Blood Count 9.39 K/ul (4.8-10.8)
[2025-09-02 07:14] LABS: Anion Gap 8.0 (3-11); Blood Urea Nitrogen 15.0 mg/dl (6-23); Calcium 8.8 mg/dl (8.6-10.3); Carbon Dioxide 26.0 mmol/L (21-32); Chloride 104.0 mmol/L (98-107); Cholesterol 158.0 mg/dl (0-200); Creatinine Clr Calc Pharmacy 129.3 ml/min; Glucose 97.0 mg/dl (70-99(Fasting)); HDL Cholesterol 38.0 mg/dl; Potassium 4.2 mmol/L (3.5-5.1); Sodium 138.0 mmol/L (136-145); Triglycerides 104.0 mg/dl (0-150)
[2025-09-02 07:24] LABS: ANTI-Xa, UFH(UnfractionatedHep 0.50 IU/ml (0.3-0.7)
[2025-09-02] MEDS ORDERED: CLOPIDOGREL BISULFATE 75 MG TAB PO SCH (09:00)
[2025-09-02] MEDS: CLOPIDOGREL BISULFATE 75 MG TAB PO SCH (09:55)
--- NOTE | 2025-09-02 10:44 | Pre Anesthesia Assessment ---
Date of Service September 02, 2025 Pre Sedation Assessment Vital Signs Temp Pulse Pulse Pulse Resp BP BP 09/02/25 09:45 75 16 151/91 H 09/02/25 08:42 36.8 C 78 18 144/90 H 09/02/25 07:22 76 09/02/25 03:00 37.1 C 65 18 111/71 09/02/25 02:45 70 09/02/25 02:45 09/01/25 22:52 36.8 C 60 18 115/65 09/01/25 19:26 37.2 C 62 18 110/67 09/01/25 15:36 36.5 C 82 18 104/62 09/01/25 15:24 76 09/01/25 11:28 36.3 C L 79 18 131/84 Pulse Ox O2 Del Method 09/02/25 09:45 97 Room Air 09/02/25 08:42 95 Room Air 09/02/25 07:22 09/02/25 03:00 95 Room Air 09/02/25 02:45 09/02/25 02:45 Room Air 09/01/25 22:52 94 Room Air 09/01/25 19:26 96 Room Air 09/01/25 15:36 96 Room Air 09/01/25 15:24 09/01/25 11:28 96 Room Air Cardiovascular RRR, no murmur, no edema Respiratory normal respiratory effort, lungs clear to auscultation Pre-Sedation Airway Assessment Smoking Status: Never smoker Hx Sleep Apnea: No Short, Thick Neck: No Thyromental Distance: > or= 3.5 Finger Breadths Oral Cavity: + Dentures Mallampati Class: III ASA: ASA3 NPO Status Date of Last Intake of Fluids: 09/01/25 Time of Last Intake of Fluids: 20:00 Date of Last Intake of Solid Food: 09/01/25 Time of Last Intake of Solid Foods: 20:00 Notes The planned sedation has been discussed with the patient. Informed Consent was obtained. I have identified the patient, determined the appropriateness of sedation and have assessed the patient immediately prior to the procedure. All medicine(s) and interventions are by my order.
[2025-09-02] MEDS: niCARdipine 2,000 MCG/20 ML SYR ONE (11:11)
[2025-09-02] MEDS: IODIXANOL (VISIPAQUE) 320 MG/ML 100ML IV ONE (11:11)
[2025-09-02] MEDS: NITROGLYCERIN/D5W 100MCG/ML 20ML SYR ONE (11:11)
[2025-09-02] MEDS: OPTIRAY 350 ONE (11:13)
[2025-09-02] MEDS: HEPARIN (PORCINE) 1000 UNIT/ML 10 ML (CATH LAB USE ONLY) ONE (11:13)
[2025-09-02] MEDS: MIDAZOLAM HCL 1 MG/ML 2ML VIAL ONE (11:13)
[2025-09-02] MEDS ORDERED: NITROGLYCERIN SL 0.4 MG/TAB TAB SL PRN (11:20)
--- NOTE | 2025-09-02 11:20 | Post Anesthesia Assessment ---
Date of Service September 02, 2025 Post Sedation Assessment Vital Signs Temp Pulse Pulse Pulse Resp BP BP 09/02/25 09:45 75 16 151/91 H 09/02/25 08:42 36.8 C 78 18 144/90 H 09/02/25 07:22 76 09/02/25 03:00 37.1 C 65 18 111/71 09/02/25 02:45 70 09/02/25 02:45 09/01/25 22:52 36.8 C 60 18 115/65 09/01/25 19:26 37.2 C 62 18 110/67 09/01/25 15:36 36.5 C 82 18 104/62 09/01/25 15:24 76 09/01/25 11:28 36.3 C L 79 18 131/84 Pulse Ox O2 Del Method 09/02/25 09:45 97 Room Air 09/02/25 08:42 95 Room Air 09/02/25 07:22 09/02/25 03:00 95 Room Air 09/02/25 02:45 09/02/25 02:45 Room Air 09/01/25 22:52 94 Room Air 09/01/25 19:26 96 Room Air 09/01/25 15:36 96 Room Air 09/01/25 15:24 09/01/25 11:28 96 Room Air Recovery Score Activity: Moves 4 extremities Respiration: Deep Breath/Cough Circulation: +/-20% PreAnes Value Consciousness: Fully Awake Oxygen Saturation: > 92% On Room Air Discharge Sedation Level of Care: Fast Track Phase II Post Sedation Plan On clinical assessment, the patient appears to have tolerated the sedation without complications. Patient is recovering as anticipated. Patient will continue to be monitored by nursing and may be discharged when sedation discharge criteria are met per below protocol. Upon Completions of procedure up to 15 minutes continue every 5 minute vital signs and the P.A.R. score; then discharge to a Phase I or Fast Track to Phase II per the following guidelines: * Discharge Patient to appropriate Phase II area if PAR is 8 or greater or return to pre- procedure baseline. The post - procedure orders will be as directed. * If PAR score is less than 8 or not return to pre-procedure baseline then patie nt will follow Phase I monitoring till PAR is reached for Phase II. The Phase I may be done in procedure room or may call to secure a Phase I area. * If naloxone or flumazenil are used for reversal, hold in Phase I for continued monitoring from when last reversal dose was given for a minimum of 60 minutes or longer pending the nurse and/or physician discretion of patient condition before discharge to Phase II. Please call the Sedation Physician to re-evaluate and complete post-note for discharge to Phase II area. Do NOT discharge from procedure sedation or Phase 1 until post- sedation ev aluation note is complete by procedure /sedation MD Sedation Discharge Instructions to be given to the patient at discharge to home. [facility] Procedure Codes (Charges) Indication for Procedure Indication for procedure: NSTEMI
[2025-09-02] MEDS: METOPROLOL TARTRATE 25 MG TAB PO STA (14:12)
[2025-09-02] MEDS: ASPIRIN 81 MG CHEW ONE (14:57)
[2025-09-02] MEDS: ISOSORBIDE MONO EXTENDED REL 30 MG TABCR PO ONE (16:19)
--- NOTE | 2025-09-02 17:04 | Hospitalist Progress Note ---
Date of Service September 02, 2025 Assessment & Plan (1) NSTEMI (non-ST elevated myocardial infarction): Plan: The patient is currently chest pain-free. Appreciate cardiology consultation and recommendations. He underwent left heart catheterization earlier today, September 02 and was found to have a stenotic lesion and a small ramus coronary artery which was too small for intervention. He currently is on medical management and with metoprolol, Plavix and isosorbide mononitrate. Heparin drip has been discontinued. Cardiac echo reveals mild left ventricular hypertrophy with normal ejection fraction and no evidence of regional wall motion abnormalities (2) Hypertension: Plan: Stable. Continue metoprolol and lisinopril (3) GERD without esophagitis: Plan: Stable. Continue PPI therapy Plan Hopeful discharge to home tomorrow, September 03, with medical management Admission and Anticipated Discharge Date Admission Date: September 02, 2025 Subjective The patient was seen after heart cath procedure earlier today and is resting comfortably. He had no interventions but apparently had a stenotic lesion in a small vessel that was too small for PCI. He is receiving medical management at this time. Hopefully he can go home tomorrow, September 03. Review of Systems 2 Review of Systems: Constitutionalno fever or chills ENTno blurred vision, no double vision, no epistaxis, no sore throat Respiratoryno cough, no wheezing, no shortness of breath Cardiacno palpitations, no syncope. Denies chest discomfort Braxton nausea, vomiting, diarrhea, melena, hematochezia GUno urinary retention, no urinary incontinence, no dysuria, no hematuria Musculoskeletalno joint pain, no muscle tenderness Skinno bruising, no rashes, no pruritus Neurono isolated weakness, no paresthesia, no weakness Psychno depression, no anxiety Physical Exam 2 Physical Exam: General-alert and oriented x3, no fever, no chills HEENT-head atraumatic and normocephalic, pupils equal and reactive to light, extraocular muscles intact Neck-no lymphadenopathy or thyromegaly, trachea midline Chest-clear to auscultation. No rales, wheezing or rhonchi Cardiac-regular rate and rhythm, normal S1 and S2 Abdomen-normal bowel sounds, no hepatosplenomegaly Extremities-no cyanosis, clubbing, or edema Neuro-cranial nerves II through XII intact, motor and sensory function within normal limits, strength symmetrical, no focal deficits Psych-normal affect, normal mood Results & Data Results & Data Vital Signs (Past 12 Hours) Vital Signs Temp Pulse Pulse Pulse Resp BP BP 09/02/25 16:19 115/77 09/02/25 15:00 60 09/02/25 14:49 65 18 138/70 09/02/25 14:15 70 16 110/62 09/02/25 13:45 67 16 132/94 09/02/25 13:15 69 16 153/106 H 09/02/25 13:00 68 16 158/106 H 09/02/25 12:45 66 16 139/101 H 09/02/25 12:30 73 16 129/91 09/02/25 12:15 79 16 130/90 09/02/25 12:00 62 16 137/89 09/02/25 11:45 66 16 115/81 09/02/25 11:30 69 16 122/82 09/02/25 09:45 75 16 151/91 H 09/02/25 08:42 36.8 C 78 18 144/90 H 09/02/25 07:22 76 Pulse Ox O2 Del Method 09/02/25 16:19 09/02/25 15:00 09/02/25 14:49 95 Room Air 09/02/25 14:15 94 Room Air 09/02/25 13:45 92 Room Air 09/02/25 13:15 92 Room Air 09/02/25 13:00 94 Room Air 09/02/25 12:45 94 Room Air 09/02/25 12:30 94 Room Air 09/02/25 12:15 94 Room Air 09/02/25 12:00 95 Room Air 09/02/25 11:45 93 Room Air 09/02/25 11:30 93 Room Air 09/02/25 09:45 97 Room Air 09/02/25 08:42 95 Room Air 09/02/25 07:22 Laboratory Results 09/02/25 05:52 09/02/25 05:52 PG Care Time/CCT Total # of Minutes Spent Total Time Spent with Patient: Total time spent is greater than 50% in coordination of care (as documented) at patient's floor/unit and/or counseling patient: Coding Level of Care Code 91895 SUB INP/OBS CARE 3/50MIN Diagnoses NSTEMI (non-ST elevated myocardial infarction) I21.4 Hypertension I10 GERD without esophagitis K21.9
[2025-09-02] MEDS: MoRPHine SULFATE 2 MG/ML CARP IV STA (17:50)
[2025-09-03 03:43] VITALS: TEMP 97.9
[2025-09-03 06:14] LABS: Hematocrit (blood only) 43.3 % (42.0-52.0); Hemoglobin 15.5 g/dL (14.0-18.0); Mean Corpuscular Hemoglobin 31.3 pg (25.0-34.0); Mean Corpuscular Volume 87.5 fL (80.0-100.0); Platelet Count 291 K/uL (130-400); RDW Standard Deviation 40.8 fL (36.4-46.3); Red Blood Count 4.95 M/uL (4.70-6.10); White Blood Count 9.12 K/ul (4.8-10.8)
[2025-09-03 06:35] LABS: Anion Gap 9.0 (3-11); Blood Urea Nitrogen 22.0 mg/dl (6-23); Calcium 9.1 mg/dl (8.6-10.3); Carbon Dioxide 22.0 mmol/L (21-32); Chloride 104.0 mmol/L (98-107); Creatinine Clr Calc Pharmacy 149.3 ml/min; Glucose 95.0 mg/dl (70-99(Fasting)); Potassium 4.4 mmol/L (3.5-5.1); Sodium 135.0 mmol/L (136-145)
[2025-09-03 06:44] LABS: ANTI-Xa, UFH(UnfractionatedHep < 0.10 IU/ml (0.3-0.7)
[2025-09-03 07:49] VITALS: RESP 20; O2SAT 95
[2025-09-03] MEDS: ISOSORBIDE MONO EXTENDED REL 30 MG TABCR PO SCH (08:10)
--- NOTE | 2025-09-03 09:13 | Cardiology Progress Note ---
Date of Service September 03, 2025 Assessment & Plan (1) NSTEMI (non-ST elevated myocardial infarction): (2) Angina at rest: (3) Coronary artery calcification seen on CAT scan: (4) Hypertension: (5) Hyperlipidemia: (6) Family history of coronary artery disease: Plan Mr. Hamilton is chest pain free at this point. The cath report is not available yet but reportedly he did not have disease amenable to intervention with a subtotal occlusion of the ramus and medical therapy was recommended. To that end he is on DAPT, statin, ACEi, bb, and isosorbide. We reviewed these medications and their role in preventing further heart disease. He can be discharged with SL nitro and we reviewed use. I would recommend he report to the ED if he does not have relief five or ten minutes after a dose. He is on long acting nitro so will need to stay sitting after he takes a short acting until he knows how it will affect him as it will likely drop his blood pressure a good bit. He was encouraged to discontinue smoking cannabis as it is associated with increased risk for cardiovascular events. He is a daily user currently and has been since he was a teenager. He does not drink alcohol or smoke cigarettes. His LDL was 99 in the hospital. The goal is to drive it below 55. We will recheck lipids in 2 months or so. 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 We will also place orders for cardiac rehab. Given his family history of his mother have a stroke due to carotid disease, will have Mr. Hamilton get a carotid doppler outpatient. He should see Dr. Sparks in follow up in a week or two. He is ok for discharge from a cardiology perspective. His case was discussed with Dr. Sparks. Admission and Anticipated Discharge Date Admission Date: September 02, 2025 Subjective Mr. Hamilton feels well. He has had no chest pain since admission. He denies any numbness or tingling in his fingers distal to his cath site. No edema. He is in sinus rhythm on telemetry Review of Systems Review of Systems: All systems reviewed & are unremarkable except as noted in HPI & below Physical Exam Constitutional: WD/WN, vitals as above Respiratory: normal respiratory effort, lungs clear to auscultation Cardiovascular: RRR, no murmur, no edema Vessels: no carotid bruit Skin: no rashes, warm and dry Neurologic: moves all extremities and awake Psychiatric: A+Ox3, euthymic affect Results & Data Vital Signs (Past 12 Hours) Vital Signs Temp Pulse Pulse Resp BP Pulse Ox O2 Del Method 09/03/25 07:48 36.6 C 73 20 112/92 95 Room Air 09/03/25 07:00 67 09/03/25 03:42 36.6 C 63 18 121/79 97 Room Air 09/02/25 23:04 36.4 C L 59 L 18 110/81 93 Room Air
--- NOTE | 2025-09-03 11:38 | Discharge Summary ---
Discharge Summary Date of Service September 03, 2025 Principal Dx & Hospital Course #1 = Principal Diagnosis (1) NSTEMI (non-ST elevated myocardial infarction): The patient remains chest pain-free on medical management. Cardiology entry noted. Appreciate cardiology consultation and recommendations. He underwent left heart catheterization on September 02 and was found to have a stenotic lesion in a small ramus coronary artery which was too small for intervention. He currently is on medical management and with metoprolol, aspirin, Plavix and isosorbide mononitrate. Heparin drip has been discontinued. Cardiac echo reveals mild left ventricular hypertrophy with normal ejection fraction and no evidence of regional wall motion abnormalities. (2) Hypertension: Stable. Continue metoprolol and lisinopril (3) GERD without esophagitis: Stable. Continue PPI therapy Plan Home today, September 03. Proper use of sublingual nitroglycerin was given to the patient should he have any recurrent chest discomfort. He will follow-up with cardiology in the office within 2 weeks. He will also see his PCP as soon as possible. He will remain off work and avoid any type of exertion until cleared by cardiology. Admission HPI Per Admitting Provider Pt is a 50 y/o male with pmh of HTN, GERD who presents with left sided chest pain that radiates to his left shoulder and jaw that started yesterday and comes and goes in waves. In the ER his EKG showed no ST-T changes, his troponin returned > 178. Pt complaining of pain in his left shoulder. He was given asa, lipitor, metoprolol, and started on a heparin drip for the treatment of possible NTEMI. Pt had echo and cardiology consult ordered. Discharge Exam General-alert and oriented x3, no fever, no chills HEENT-head atraumatic and normocephalic, pupils equal and reactive to light, extraocular muscles intact Neck-no lymphadenopathy or thyromegaly, trachea midline Chest-clear to auscultation. No rales, wheezing or rhonchi Cardiac-regular rate and rhythm, normal S1 and S2 Abdomen-normal bowel sounds, no hepatosplenomegaly Extremities-no cyanosis, clubbing, or edema Neuro-cranial nerves II through XII intact, motor and sensory function within normal limits, strength symmetrical, no focal deficits Psych-normal affect, normal mood Discharge Plan Discharge Items Patient Disposition: Home - Self-Care Reason For Visit: NSTEMI Discharge Diagnosis: NSTEMI Condition on Discharge: Good Activity: Per Instructions section Activity Comment: Avoid any type of exertion until cleared by cardiology Non-emergency contact: Primary Care Provider and Manager Intr[employer]et Call non-emergency contact if: you have any medication questions and your symptoms worsen Follow-up/Referrals: Keith Reno CRNP [Primary Care Provider] - Diet: Regular and Heart Healthy Addtl Attending Provider Instructions: Use nitroglycerin under the tongue as needed for any recurrent chest discomfort. Use as directed. New prescriptions have been sent to [facility] pharmacy. Follow-up with cardiology in 2 weeks. See your primary care provider soon as possible. Off work until further notice Pending Studies at Discharge: No Stand-Alone Forms: My [facility] [employer], Smoking Cessation Medications and DC Order Prescriptions: New atorvastatin 40 mg Tablet 40 mg PO QAM Qty: 30 0RF isosorbide mononitrate 30 mg Tablet Extended Release 24 Hr 30 mg PO QAM Qty: 30 0RF clopidogrel 75 mg Tablet 75 mg PO QAM Qty: 30 0RF metoprolol tartrate 25 mg Tablet 25 mg PO BID Qty: 60 0RF nitroglycerin [Nitrostat] 0.4 mg Tablet, Sublingual 0.4 mg sublingual Q5M PRN (Reason: chest pain) Qty: 25 0RF aspirin 81 mg Tablet,Delayed Release (Dr/Ec) 81 mg PO DAILY Qty: 0 0RF Continued lisinopril 20 mg tablet 20 mg PO DAILY Qty: 90 2RF Rx Instructions: PER PT'S "HASN'T TAKEN FOR A FEW DAYS, DID TAKE THIS MORNING". famotidine 40 mg tablet 40 mg PO HS Qty: 90 1RF omeprazole 40 mg capsule,delayed release(DR/EC) 40 mg PO DAILY Discharge Orders: Discharge Order (Routine); Ordered 09/03/25 Ordered By: Pankaj Zaidi Admission Data Admit Date/Time: 09/02/25 09:34 Attending Provider: Pankaj Zaidi Admit Provider: Pankaj Zaidi Primary Care Provider: Keith Reno Other Providers: Anisa Sparks; Carlos Quan Hospital Stay Data Consultations 08/31/25 15:07 Consult Cardiology Routine 08/31/25 15:11 ED Decision to Admit Stat 09/03/25 09:27 Consult Cardiac Rehabilitation Routine Procedures Performed Operation Date: 09/02/25 10:30 Actual Procedures p Cineradiography w/Routine Exam - Emmanuel Brooke MD, PhD p Cath, Coronaries ONLY (no LV) - Emmanuel Brooke MD, PhD Diagnostic Imagining Performed 09/02/25 10:52 CL Cath Imgs for PACS use only Stat Pending Results Patient Have Any Pending Studies at Discharge: No Discharge Instructions Given to Patient (Per Discharging Provider) Use nitroglycerin under the tongue as needed for any recurrent chest discomfort. Use as directed. New prescriptions have been sent to [facility] pharmacy. Follow-up with cardiology in 2 weeks. See your primary care provider soon as possible. Off work until further notice Total Time Total Time Spent Total Time Spent (In Minutes): 45 minutes. Total time included patient exam, discharge planning, medication reconciliation, and communication with other providers. Coding Level of Care Code 01952 INP/OBS DISCH >30 MIN Diagnoses NSTEMI (non-ST elevated myocardial infarction) I21.4 Hypertension I10 GERD without esophagitis K21.9
[2025-09-03 11:41] VITALS: BP 109/65; PULSE 70
[2025-09-03 13:06] LABS: C-Reactive Protein High Sens. 10.8 mg/L
--- NOTE | 2025-09-04 08:24 | Electrocardiogram Report ---
Test Reason : Blood Pressure : */* mmHG Vent. Rate : 55 BPM Atrial Rate : 55 BPM P-R Int : 158 ms QRS Dur : 92 ms QT Int : 440 ms P-R-T Axes : 73 31 50 degrees QTcB Int : 420 ms Sinus bradycardia Otherwise normal ECG When compared with ECG of 31-Aug-2025 12:21, QRS duration has decreased Baseline artifact Confirmed by Anisa Sparks (Alyx) on 09/04/2025 8:24:28 AM Referred By: REFERRED SELF Confirmed By: Anisa Sparks
--- NOTE | 2025-09-04 08:25 | Electrocardiogram Report ---
Test Reason : Blood Pressure : */* mmHG Vent. Rate : 61 BPM Atrial Rate : 61 BPM P-R Int : 176 ms QRS Dur : 114 ms QT Int : 440 ms P-R-T Axes : 54 45 67 degrees QTcB Int : 442 ms Sinus rhythm with occasional Premature ventricular complexes Otherwise normal ECG When compared with ECG of 31-Aug-2025 23:38, Premature ventricular complexes are now Present Confirmed by Anisa Sparks (Alyx) on 09/04/2025 8:25:14 AM Referred By: REFERRED SELF Confirmed By: Anisa Sparks
--- NOTE | 2025-09-08 12:13 | Cardiac Catheterization ---
[facility] Data: [employer] Cardiac Status Clinical evaluation leading to the procedure CAD Presenation: Non STEMI Anginal Classification: CCS IV Heart Failure: No Cardiogenic Shock within 24 Hours: No Cardiac Arrest within 24 Hours: No Imaging Studies Past 6 Months: Yes Stress Studies Past 6 Months: No Coronary Anatomy Dominant: Right Left Main (% Stenosis): Normal LAD (% Stenosis): Normal D1 (% Stenosis): Ostial (80%) D2 (% Stenosis): Ostial (80-90%) Circumflex (% Stenosis): Normal OM1 (% Stenosis): Normal OM2 (% Stenosis): Normal L PL1 (% Stenosis): Normal RCA (% Stenosis): Normal R PDA (% Stenosis): Normal R PL1 (% Stenosis): Normal Ramus (% Stenosis): Proximal (99-100%) Diagnostic Physicians Name: Emmanuel Brooke MD, PhD Closure Device Percutaneous Entry Location: Radial Closure Device: Radial Band Recommendations: Medical Therapy and/or Counseling Cardiac Cath Procedure Full Procedure Date September 02, 2025 Pre-Procedure Diagnosis Pre-Procedure Diagnosis: Non STEMI AUC Score AUC Score: 07 Post-Procedure Diagnosis Post-Procedure Diagnosis: Severe CAD Procedure(s) Performed Procedure(s) Performed: Coronary Angiography [employer] Emmanuel Brooke MD, PhD Estimated Blood Loss Estimated Blood Loss: 5cc Medication(s) Medication(s): Fentanyl, Heparin, Lidocaine 1%, Nicardipine, Nitroglycerin and Versed Summary of Findings Brief description: Patient was brought to the cardiac catheterization suite where he was shaved and prepped in a sterile fashion. Sedated using IV Versed and fentanyl. Soft tissues of the right wrist were anesthetized using 2 mL of 1% Xylocaine. Right radial artery was accessed with modified Seldinger technique and a 6 American radial artery glide sheath was placed. Patient was provided anticoagulation with IV heparin and antispasmodics including nicardipine and nitroglycerin. All catheters were advanced and exchanged over a 0.035 J-tip wire. Left coronary angiography in orthogonal views a 5 American [place] 4 diagnostic catheter. Right coronary angiography in orthogonal views with a 5 American [place] 4 diagnostic catheter. Diagnostic catheters were removed. Radial artery sheath was removed. Hemostasis was obtained using the TR band. Patient remained hemodynamically stable and asymptomatic. He is returned to the recovery area in stable condition. This ended the case. Coronary angiography findings: [id number] vessel trifurcating into LAD, ramus, and circumflex. No disease. [id number] and transapical. Proximal luminal irregularities. D1 has ostial less than 80% stenosis. Mid LAD with mild luminal irregularities. D2 has ostial to proximal 80-90% stenosis. The diagonal branches are too small for PCI. 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 Ramus-small to medium caliber (less than 2 mm) vessel with proximal 99 to 100% occlusion just before the branch point. Appears to be too small for PCI. LCx-large caliber nondominant. Travels in the AV groove where it gives 2 small obtuse marginal branches. Distally becomes a large branching posterolateral. There is no more than mild luminal irregularities in the circumflex and its branches. RCA-large caliber and dominant vessel. Bifurcates distally into a large PDA and a large branching posterolateral. There is no angiographically evident disease in the RCA or its branches. Hemodynamics Rest Ao:: 90/69 mmHg Final Ao: 86/67 mmHg LV: Not performed Recommendations Recommendations: Medical Therapy and/or Counseling Radiation Exposure (mGy) 568 mGy, fluoroscopy time 2.2 minutes Contrast (mls) 70 cc Anesthesia 2 mg Versed, 50 mcg fentanyl IV. Start time 1103, end time 1114 Procedural Complication(s) None Disposition [employer] Holding/Recovery I attest to the content of the Intraoperative Record and any orders documented therein. Any exceptions are noted below. [facility] Card Cath Procedure Codes Cardiac Catheterization Procedure 1: Cardiovascular Cath Procedures: 04943 Coronaries Moderate Sedation Procedure 1: Sedation/Anesthesia: 66736 Mod Sedation by the same physician;Init15 Min Child Age 5 & Up (Initial 15 minutes, start time 1103, end time 1114) PG Care Time/CCT Total # of Minutes Spent Total Time Spent with Patient: Total time spent is greater than 50% in coordination of care (as documented) at patient's floor/unit and/or counseling patient:
== END 2025-09-03 12:13 | disposition home or self-care (01) | DRG 282 ==
LOC: 2N 12:12 → ED 12:12 → SUATTDRO 15:10 → 2N 15:55 → 2E 09-02 14:55
PROC: CLB.CCO (2025-09-02 10:30)